=== PATIENT | female | born 1995 | race Two or more races ===

== ENCOUNTER 2019-10-09 17:21 | Emergency (ER) | payer OTHER, SELFPAY ==
[2019-10-09 17:29] VITALS: BP 123/65; PULSE 92; RESP 20; TEMP 36.6; O2SAT 100
--- NOTE | 2019-10-09 17:37 | ED.GENADULT ---
HPI - General Adult General Chief complaint: Unspecified Stated complaint: itchy anal Time Seen by Provider: 10/09/19 17:37 Source: patient and RN notes reviewed Mode of arrival: ambulatory Limitations: no limitations History of Present Illness HPI narrative: 24-year-old female who is 34 weeks presents with concerns for several day history of anal itching. She denies any problems like this in the past, she denies constipation, blood in her stool. She denies abdominal pain. MD complaint: Anal itching Related Data Home Medications Medication Instructions Recorded Confirmed PNV cmb#95-ferrous fumarate-FA 1 tablet PO DAILY 10/09/19 10/09/19 [] Allergies Allergy/AdvReac Type Severity Reaction Status Date / Time No Known Allergies Allergy Unverified 02/18/17 20:05 Review of Systems Review of Systems: Narrative: CONSTITUTIONAL: Denies malaise, chills, sweats, or fever. CARDIOVASCULAR: Denies chest pain, palpitations GASTROINTESTINAL: Denies abdominal pain, nausea, vomiting, diarrhea, bloody, or mucous stools. Reports anal itching GENITOURINARY: Denies dysuria or hematuria. All systems reviewed & are unremarkable except as noted in HPI and below PMFSH Comments At time of signature, agree with nursing past medical, surgical, social and family history. There is no relevant family history pertinent to the presenting complaint Exam Narrative: Exam Narrative: GENERAL: Well-appearing, well-nourished, and in no acute distress. HEAD: Normocephalic, atraumatic. EYES: PERRLA, conjunctivae clear ENT: Mucous membranes moist. NECK: Supple. CHEST: No respiratory distress. Speaks in full sentences. HEART: Regular rate and rhythm. SKIN: Warm, dry, no rash. NEURO: Alert and oriented x3. PSYCH: Normal mood and affect GI: Rectal Exam: External hemorrhoid(s) present Course Course Emergency Course: Patient is aware of diagnosis, understands and agrees to treatment plan. Anticipatory guidance given. Patient agrees to follow-up as directed and is aware of reasons to seek care at the emergency department. Portions of this record may have been created with voice recognition software Vital Signs Vital signs: Vital Signs Temperature 98 F 10/09/19 17:29 Pulse Rate 92 10/09/19 17:29 Respiratory Rate 20 10/09/19 17:29 Blood Pressure 123/65 10/09/19 17:29 Pulse Oximetry 100 10/09/19 17:29 Temperature 98 F 10/09/19 17:29 Pulse Rate 92 10/09/19 17:29 Respiratory Rate 20 10/09/19 17:29 Blood Pressure 123/65 10/09/19 17:29 Pulse Oximetry 100 10/09/19 17:29 Reviewed. Medical Decision Making MDM Narrative Medical decision making narrative: Exam findings show no acute concerns or changes; patient is non-toxic appearing and is in no distress. Patient is appropriate for outpatient treatment and follow-up. Vital Signs Vital Signs: Vital Signs Temperature 98 F 10/09/19 17:29 Pulse Rate 92 10/09/19 17:29 Respiratory Rate 20 10/09/19 17:29 Blood Pressure 123/65 10/09/19 17:29 Pulse Oximetry 100 10/09/19 17:29 Temperature 98 F 10/09/19 17:29 Pulse Rate 92 10/09/19 17:29 Respiratory Rate 20 10/09/19 17:29 Blood Pressure 123/65 10/09/19 17:29 Pulse Oximetry 100 10/09/19 17:29 Critical Care Time Critical Care Time Critical Care Time: No Discharge Plan Discharge Clinical Impression: Hemorrhoids during Qualifiers: Trimester: third trimester Qualified Code(s): O22.43 - Hemorrhoids in , third trimester Patient Disposition: Home, Self-Care Condition: Stable Instructions: Hemorrhoids (ED) Additional Instructions: Take 30g of fiber with 2 liters of water daily, This will take 2 to 6 weeks to work and will result in less bleeding and lessen progression of hemorrhoids. Warm baths/soaks with empsom salts (sitz bath) three times daily can provide comfort. Take stool softeners (colace) to avoid straining. Follow up wit
== END 2019-10-09 17:50 | disposition home or self-care (01) ==
PROVIDERS: Emergency Provider Nurse Practitioner
DX: O22.43 Hemorrhoids in pregnancy, third trimester (principal); Z3A.34 34 weeks gestation of pregnancy
CPT/HCPCS: 99213; G0463

== ENCOUNTER 2020-02-26 13:52 | Emergency (ER) | payer OTHER, SELFPAY ==
--- NOTE | ~2020-02-26 | XR_ITS ---
EXAMINATION: XR abdomen/kub 1V EXAM DATE: 02/26/2020 14:20 INDICATION: Flank pain. TECHNIQUE: Frontal projection of the upper abdomen, frontal projection lower abdomen/pelvis for inter pretation. There is no prior study for comparison. FINDINGS: There is nonobstructive bowel gas pattern. There are pelvic calcifications most likely phl eboliths, but if patient's flank pain is on the right, one of the 3 mm calcifications on the right do es overlie general proximity of the UVJ. However, there were no calcifications projecting over the re nal contours to suggest other evidence of genitourinary calcifications. There is mild to moderate tho racolumbar levoscoliosis. There is no organomegaly. IMPRESSION: Pelvic calcifications statistically most likely phleboliths but one of these does projec t over general location of the right UVJ. Reviewed, dictated and finalized at location A. IMPRESSION: Pelvic calcifications statistically most likely phleboliths but on e of these does project over general location of the right UVJ.
--- NOTE | 2020-02-26 13:55 | ED.GENADULT ---
HPI - General Adult General Chief complaint: Urogenital-Female Stated complaint: lower back pain Time Seen by Provider: 02/26/20 13:55 Source: patient Mode of arrival: ambulatory Limitations: no limitations History of Present Illness HPI narrative: 24-year-old female patient presents to the [facility] with complaints of left lower back pain that started last night. Patient states she is taken 1 dose of 800 mg ibuprofen since the pain started. Patient denies any injury to the back or denies any recent lifting. Patient denies any pain with urination, urgency or frequency. Patient denies any fever, body aches or chills. Denies any nausea vomiting or diarrhea. Patient states that the left lower back pain does wrap around to the abdomen. Related Data Allergies Allergy/AdvReac Type Severity Reaction Status Date / Time No Known Allergies Allergy Verified 02/26/20 14:07 Review of Systems Review of Systems: Narrative: CONSTITUTIONAL: Denies fever, chills, or sweats. EYES: Denies visual changes, redness, or discharge. ENT: Denies rhinorrhea, congestion, sore throat, or otalgia. CARDIOVASCULAR: Denies chest pain, palpitations, or edema. RESPIRATORY: Denies cough or dyspnea. GASTROINTESTINAL: Positive abdominal cramping, denies nausea, vomiting, or diarrhea. GENITOURINARY: Denies dysuria or hematuria. SKIN: Denies rash or itching. MUSCULOSKELETAL: Positive left low back pain, denies joint pain, or myalgia. NEUROLOGIC: Denies headache, numbness, or weakness. PSYCHIATRIC: Denies anxiety or depression. PMFSH Comments At the time of my signature I agree with nursing past medical history, surgical, social, and family history. There is no relevant family history pertinent to the presenting complaint. Exam Narrative: Exam Narrative: GENERAL: Well-appearing, well-nourished, and in no acute distress. HEAD: Normocephalic, atraumatic. EYES: PERRLA and EOMI. ENT: Nares clear, no rhinorrhea or epistaxis. Mucous membranes moist. NECK: Supple. No lymphadenopathy CHEST: Clear to auscultation. No respiratory distress. HEART: Regular rate and rhythm. No murmur heard. Normal peripheral pulses. ABDOMEN: Soft, nontender, nondistended, normal active bowel sounds. Patient does have CVA tenderness on percussion to bilateral sides. BACK: Patient is able to ambulated without assistance, but does walk hunched over. Pt is seated on the stretcher in no obvouis distress. No surface trauma noted. No muscle tenderness to Palpation. No spasm or mass. No step-offs or deformity noted to the cervical, thoracic or lumbar spine to firm Palpation at the midline. CVA tenderness to percussion on bilateral sides. No saddle anesthesia. ROM: able to stand erect. Normal flexion, extension, Lateral bending and rotation without limitation or complaint of pain. EXTREMITIES: Normal range of motion. No edema. SKIN: Warm, dry, no rash. NEURO: No focal deficits. Alert and oriented x3. Course Reevaluation(s) Reevaluation #1: Reevaluated patient after KUB had resulted. Discussed with her that her KUB is negative for any obvious kidney stones. Discussed with patient that it does show that she is got some scoliosis to her lumbar spine. Patient is unaware of ever being diagnosed with scoliosis before in the past. Discussed with her that this sometimes can cause chronic back pain. Discussed with patient that I would recommend using a heating pad and ice to the area and I will go ahead and give her some naproxen to help with the pain. Discussed with her she needs to be doing gentle stretching exercises and if her symptoms get worse including fevers, body aches, chills, nausea, vomiting or diarrhea then I would recommend that she go to the ER for further evaluation. Patient verbalized understanding of this denies any other questions or concerns at this time. Date: 02/26/20 Time: 14:50 Vital Signs Vital signs: Vital Signs Temperature 36.5 C 02/26/20 13:57 Pulse Rate 77 02/26/20 13:
[2020-02-26 13:57] VITALS: BP 128/78; PULSE 77; RESP 16; TEMP 36.5; O2SAT 99
--- NOTE | 2020-02-26 15:04 | PC.NURSE ---
NO UC ORDERED PER PROVIDER
== END 2020-02-26 14:58 | disposition home or self-care (01) ==
PROVIDERS: Emergency Provider Nurse Practitioner Family
DX: M54.5 Low back pain (principal); M41.85 Other forms of scoliosis, thoracolumbar region
CPT/HCPCS: 74018; 81003; 81025; 99213; G0463